=== PATIENT | female | born 1970 | race Hispanic/Latino ===

== ENCOUNTER 2018-02-08 12:10 | Outpatient (CLI) | payer OTHER | END 2018-02-08 12:11 | disposition home or self-care (01) | LOC: BICRAD 12:10 | DX: M79.632 Pain in left forearm (principal); M25.522 Pain in left elbow; S52.125A Nondisplaced fracture of head of left radius, initial encounter for closed fracture; M19.022 Primary osteoarthritis, left elbow ==